=== PATIENT | male | born 1970 | race Caucasian/White ===

== ENCOUNTER 2017-12-05 19:18 | Emergency (ER) | payer BC ==
[2017-12-05] MEDS ORDERED: (BACK ORDERED; DO NOT ORDER) DIAZEPAM 5 MG/ML DISP.SYRIN IM ONE (19:34)
[2017-12-05] MEDS ORDERED: KETOROLAC TROMETHAMINE 30 MG/1ML VIAL IM ONE (19:34)
--- NOTE | 2017-12-05 19:34 | ED Physician Documentation ---
General Adult - HISTORIAN Historian: patient, spouse - HPI Stated Complaint: Back Pain Chief Complaint: General Adult Onset: days ago (2) Severity: moderate Further Comments: yes (Pt is a 47 yo male with back pain. Pain began 2 days ago when pt was trying to move a palette using his feet. Pain got increasing worse over the next 2 days. No hx significant back injury.) - ROS CONST: no problems EYES/ENT: none CVS/RESP: none GI/: none MS/SKIN/LYMPH: back pain - PAST HX Past History: other (depression) Allergies/Adverse Reactions: Allergies Allergy/AdvReac Type Severity Reaction Status Date / Time No Known Allergies Allergy Unverified 12/05/17 19:32 Home Medications: Ambulatory Orders Medication Instructions Recorded NK [NK] 12/05/17 - SOCIAL HX Smoking History: non-smoker - FAMILY HX Family History: No - VITAL SIGNS Vital Signs: Vital Signs Temp Pulse Resp BP Pulse Ox 98 F 82 18 118/75 99 12/05/17 19:20 12/05/17 19:20 12/05/17 19:20 12/05/17 19:20 12/05/17 19:20 - REVIEWED ASSESSMENTS Nursing Assessment Reviewed: Yes Vitals Reviewed: Yes Progress - Progress Progress: Norflex 60 mg IM Toradol 30 mg IM improved D/c instructions: Ibuprofen 200 mg. Take 3 or 4 tablet every 8 hrs with food. Rx Flexeril 10 mg. Take one every 8 hrs as needed for muscle spasm. General Adult Physical Exam - PHYSICAL EXAM GENERAL APPEARANCE: moderate distress EENT: pharynx normal NECK: normal inspection, supple RESPIRATORY: no resp distress, chest non-tender, breath sounds normal CVS: reg rate & rhythm, heart sounds normal ABDOMEN: soft, no organomegaly, normal bowel sounds BACK: normal inspection, other (L lower lumbar muscle spasm) SKIN: warm/dry, normal color EXTREMITIES: non-tender, normal range of motion, no evidence of injury NEURO: oriented X3, motor nml, sensation nml, other (DTR's wnl) Discharge Clincal Impression: back pain Referrals: Primary Doctor,No [Primary Care Provider] - Condition: Good Disposition: 01 HOME, SELF-CARE Decision to Admit: NO Decision Time: 20:40
[2017-12-05] MEDS ORDERED: ORPHENADRINE CITRATE 60 MG/2ML ONE (19:41)
[2017-12-05] MEDS ORDERED: ORPHENADRINE CITRATE 60 MG/2ML IM ONE (19:44)
[2017-12-05 20:58] VITALS: BP 121/60
== END 2017-12-05 20:50 | disposition home or self-care (01) ==
LOC: ED 19:18
DX: M54.9 Dorsalgia, unspecified (principal)
CPT/HCPCS: J1885; J2360; 96372; 99282